=== PATIENT | male | born 1990 | race Caucasian/White ===

== ENCOUNTER 2023-08-04 01:59 | Inpatient (IN) | payer OTHER ==
[2023-08-04 02:41] VITALS: BMI 21.2
[2023-08-04] MEDS ORDERED: BENZOCAINE/MENTHOL (CHLORASEPTIC ) LOZENGE MM PRN (03:05)
[2023-08-04] MEDS ORDERED: BENZONATATE 200 MG CAPSULE PO PRN (03:05)
[2023-08-04] MEDS ORDERED: ACETAMINOPHEN 325 MG TABLET (FP) PO PRN (03:05)
[2023-08-04] MEDS ORDERED: MAGNESIUM HYDROX 2400MG/30ML ORAL SUSPENSION 30 ML CUP PO PRN (03:05)
[2023-08-04] MEDS ORDERED: NALOXONE HCL (KLOXXADO) 8 MG SPRAY NS PRN (03:05)
[2023-08-04] MEDS ORDERED: LOPERAMIDE HCL 2 MG CAPSULE PO PRN (03:05)
[2023-08-04] MEDS ORDERED: NALOXONE HCL 0.4 MG/ML VIAL IM PRN (03:05)
[2023-08-04] MEDS ORDERED: BISMUTH SUBSALICYLATE 524 MG/30 ML PO PRN (03:05)
[2023-08-04] MEDS ORDERED: ONDANSETRON *ODT* 4 MG TABLET SL PRN (03:05)
[2023-08-04] MEDS ORDERED: guaiFENesin 600 MG TABLET.ER (FP) PO PRN (03:05)
[2023-08-04] MEDS ORDERED: IBUPROFEN 400 MG TABLET (FP) PO PRN (03:05)
[2023-08-04] MEDS ORDERED: DICYCLOMINE HCL 10 MG CAPSULE PO PRN (03:05)
[2023-08-04] MEDS ORDERED: POLYETHYLENE GLYCOL (HEALTHYLAX) 3350 17 GM PACKET PO PRN (03:05)
[2023-08-04] MEDS ORDERED: MAG HYDROX/AL HYDROX/SIMETH 30 ML UNIT-DOSE CUP PO PRN (03:05)
[2023-08-04] MEDS: PRENATAL VITAMINS W/ FOLIC ACID TABLET (FP) PO SCH (10:26)
[2023-08-04] MEDS: BACITRACIN ZINC 15 GM TUBE TOPICAL OINTMENT TP SCH (10:27)
[2023-08-04] MEDS: methaDONE HCL 10 MG TABLET PO ONE (10:34)
[2023-08-04 11:56] LABS: HEMATOCRIT 39.6 % (35.4-49); HEMOGLOBIN 13.6 GM/dL (11.7-16.9); MCH 33.9 pg (25.7-33.7); MCHC 34.4 g/dl (32.0-35.9); MEAN CELL VOLUME 98.6 fl (80-96); MEAN PLT VOLUME 10.5 fl (7.5-11.1); PLATELET COUNT 177 10^3/uL (134-434); RBC 4.02 M/mm3 (4.00-5.60); RDW 14.3 % (11.9-15.9); WHITE BLOOD COUNT 8.6 K/mm3 (4.0-10.0)
[2023-08-04] MEDS ORDERED: methaDONE HCL 10 MG TABLET PO PRN (12:14)
[2023-08-04 12:21] LABS: CHLORIDE 106 mmol/L (98-107); POTASSIUM 3.8 mmol/L (3.5-5.1); SODIUM 140 mmol/L (136-145)
[2023-08-04 12:23] LABS: CALCIUM 8.7 mg/dL (8.5-10.1)
[2023-08-04 12:24] LABS: ALBUMIN 3.5 g/dl (3.4-5.0); ANION GAP 5 mmol/L (4-13); BLOOD UREA NITROGEN 15.7 mg/dL (7-18); CO2 28 mmol/L (21-32); GLUCOSE,RANDOM 80 mg/dL (74-106)
[2023-08-04 12:27] LABS: CREATININE 1.1 mg/dL (0.55-1.3); SGOT/AST 18 U/L (15-37); SGPT/ALT 23 U/L (13-61)
[2023-08-04 12:28] LABS: BILIRUBIN,TOTAL 0.9 mg/dL (0.2-1); TOT PROT 6.6 g/dl (6.4-8.2)
[2023-08-04 12:30] LABS: ALK PHOS 86 U/L (45-117)
[2023-08-04] MEDS: cloNIDine HCL 0.1 MG TABLET PO SCH (14:12)
[2023-08-04] MEDS: THIAMINE 100 MG TABLET PO SCH (22:26)
[2023-08-04] MEDS: MELATONIN 5 MG TABLETS PO SCH (22:26)
[2023-08-05] MEDS ORDERED: methaDONE HCL 10 MG TABLET ONE (09:32)
[2023-08-05] MEDS: methaDONE 40 MG, methaDONE 10 MG PO ONE (09:43)
[2023-08-05] MEDS: IBUPROFEN 600 MG TABLET (FP) PO PRN (09:44)
[2023-08-05] MEDS: METHOCARBAMOL 500 MG TABLET PO PRN (22:32)
[2023-08-06] MEDS ORDERED: cloNIDine HCL 0.1 MG TABLET PO PRN
[2023-08-06] MEDS: methaDONE 40 MG, methaDONE 20 MG PO ONE (09:48)
[2023-08-06] MEDS: methaDONE HCL 40 MG DISPERSABLE TABLET PO ONE (11:06)
[2023-08-06] MEDS: hydrOXYzine PAMOATE 25 MG CAPSULE (FP) PO PRN (22:50)
[2023-08-07] MEDS: methaDONE HCL 40 MG DISPERSABLE TABLET PO ONE (09:15)
[2023-08-07] MEDS ORDERED: methaDONE 40 MG, methaDONE 30 MG PO ONE (10:00)
[2023-08-08 09:00] VITALS: TEMP 97.9
[2023-08-08] MEDS: methaDONE HCL 40 MG DISPERSABLE TABLET PO ONE (09:14)
[2023-08-08] MEDS ORDERED: methaDONE HCL 40 MG DISPERSABLE TABLET PO ONE (10:00)
[2023-08-08 12:30] VITALS: BP 118/70; PULSE 64; RESP 16
[2023-08-09] MEDS ORDERED: methaDONE 80 MG, methaDONE 10 MG PO ONE (10:00)
== END 2023-08-08 13:45 | disposition other institution (70) | DRG 773 ==
LOC: YASAS 01:59 → UNDOADMIN 03:15 → Y3N 03:15
PROVIDERS: ADMIT Allergy & Immunology; ATTEND Surgery
PROC: HZ2ZZZZ Detoxification Services for Substance Abuse Treatment (ICD-10-PCS; principal; 2023-08-04)
DX: F11.23 Opioid dependence with withdrawal (principal); F14.20 Cocaine dependence, uncomplicated; F19.24 Other psychoactive substance dependence with psychoactive substance-induced mood disorder; Z87.891 Personal history of nicotine dependence; Z59.00 Homelessness unspecified; Z56.0 Unemployment, unspecified
CPT/HCPCS: 36415; 80053; 80305; 80307; 85027; 86780; 87811; 93005; 93010

== ENCOUNTER 2023-08-08 13:50 | Inpatient (IN) | payer OTHER ==
[2023-08-08] MEDS ORDERED: LOPERAMIDE HCL 2 MG CAPSULE PO PRN (16:14)
[2023-08-08] MEDS ORDERED: METHOCARBAMOL 500 MG TABLET PO PRN (16:14)
[2023-08-08] MEDS ORDERED: IBUPROFEN 400 MG TABLET (FP) PO PRN (16:14)
[2023-08-08] MEDS ORDERED: BENZONATATE 200 MG CAPSULE PO PRN (16:14)
[2023-08-08] MEDS ORDERED: guaiFENesin 600 MG TABLET.ER (FP) PO PRN (16:14)
[2023-08-08] MEDS ORDERED: ACETAMINOPHEN 325 MG TABLET (FP) PO PRN (16:14)
[2023-08-08] MEDS ORDERED: NALOXONE (NYS OPIOID OVERDOSE PROGRAM) 4 MG/0.1 ML SPRAY NS PRN (16:14)
[2023-08-08] MEDS ORDERED: BENZOCAINE/MENTHOL (CHLORASEPTIC ) LOZENGE MM PRN (16:14)
[2023-08-08] MEDS ORDERED: MAGNESIUM HYDROX 2400MG/30ML ORAL SUSPENSION 30 ML CUP PO PRN (16:14)
[2023-08-08] MEDS ORDERED: hydrOXYzine PAMOATE 25 MG CAPSULE (FP) PO PRN (16:14)
[2023-08-08] MEDS ORDERED: MAG HYDROX/AL HYDROX/SIMETH 30 ML UNIT-DOSE CUP PO PRN (16:14)
[2023-08-08] MEDS ORDERED: NALOXONE HCL 0.4 MG/ML VIAL IVPUSH PRN (16:14)
[2023-08-08] MEDS ORDERED: IBUPROFEN 600 MG TABLET (FP) PO PRN (16:14)
[2023-08-08] MEDS ORDERED: POLYETHYLENE GLYCOL (HEALTHYLAX) 3350 17 GM PACKET PO PRN (16:14)
[2023-08-08] MEDS: THIAMINE 100 MG TABLET PO SCH (21:35)
[2023-08-08] MEDS: MELATONIN 5 MG TABLETS PO SCH (21:35)
[2023-08-09 07:17] VITALS: BP 117/68; PULSE 53; RESP 17; TEMP 98.1
[2023-08-09] MEDS: PRENATAL VITAMINS W/ FOLIC ACID TABLET (FP) PO SCH (10:18)
[2023-08-09] MEDS: methaDONE HCL 40 MG DISPERSABLE TABLET PO SCH (10:18)
== END 2023-08-09 14:28 | disposition left against medical advice (07) | DRG 770 ==
LOC: YASAS 13:50 → Y3E 13:51 → Y5N 15:26
PROVIDERS: ADMIT Allergy & Immunology; ATTEND Psychiatry & Neurology Pain Medicine
PROC: HZ42ZZZ Group Counseling for Substance Abuse Treatment, Cognitive-Behavioral (ICD-10-PCS; principal; 2023-08-08)
DX: F11.20 Opioid dependence, uncomplicated (principal); F14.20 Cocaine dependence, uncomplicated; Z87.891 Personal history of nicotine dependence